=== PATIENT | female | born 1990 | race Caucasian/White ===

== ENCOUNTER 2020-06-15 13:51 | Outpatient (REF) | payer MEDICAID, SELFPAY | END 2020-06-15 13:52 | disposition home or self-care (01) | LOC: HO.LAB 13:51 | PROVIDERS: Visit Provider Internal Medicine | DX: Z20.828 Contact with and (suspected) exposure to other viral communicable diseases (principal) | CPT/HCPCS: 87635 ==

== ENCOUNTER 2020-08-18 17:52 | Outpatient (REF) | payer MEDICAID, SELFPAY | END 2020-08-18 17:53 | disposition home or self-care (01) | LOC: HO.LAB 17:52 | PROVIDERS: Visit Provider Internal Medicine | DX: Z20.828 Contact with and (suspected) exposure to other viral communicable diseases (principal) | CPT/HCPCS: C9803; U0003 ==